=== PATIENT | male | born 1995 | race African-American/Black ===

== ENCOUNTER 2019-07-28 18:46 | Emergency (ER) | payer SELFPAY ==
[2019-07-28] MEDS ORDERED: CEPHALEXIN500 MG PO (20:22)
[2019-07-28 20:52] VITALS: BP 117/63
[2019-07-28] MEDS ORDERED: no home med (20:53)
== END 2019-07-28 20:52 | disposition home or self-care (01) | DRG 728 ==
LOC: ED 18:46
DX: N49.2 Inflammatory disorders of scrotum (principal)

== ENCOUNTER 2020-01-11 18:57 | Emergency (ER) | payer SELFPAY ==
[~2020-01-11] VITALS: Ht 176.5 cm; Wt 77.0 kg
[~2020-01-11 18:57] MED LIST: CEPHALEXIN500 MG PO; no home med
[2020-01-11 19:47] LABS: HEMATOCRIT 38.4 % (39.0-50.0); HEMOGLOBIN 12.5 g/dl (14.0-18.0); IMMATURE GRANULOCYTES 0.2 % (0.0-5.0); MEAN CELL VOLUME 89.1 fL CALC (80.0-100.0); MEAN CORPUSCULAR HGB CONC 32.6 g/dL CAL (32.0-36.0); NEUT# 3.14 thou/uL (1.82-7.42); RED BLOOD COUNT 4.31 mill/uL (4.70-6.10); RED CELL DISTRI WIDTH 11.9 % (11.5-15.5)
[2020-01-11 19:50] LABS: URINE BILIRUBIN - DIPSTICK NEGATIVE (NEGATIVE); URINE BLOOD DIPSTICK NEGATIVE (NEGATIVE); URINE COLOR YELLOW; URINE GLUCOSE - DIPSTICK NEGATIVE (NEGATIVE); URINE KETONE NEGATIVE (NEGATIVE); URINE LEUK ESTERASE NEGATIVE (NEGATIVE); URINE NITRITE - DIPSTICK NEGATIVE (Negative); URINE PROTEIN - DIPSTICK NEGATIVE (NEG-TRACE); URINE SPECIFIC GRAVITY 1.025; URINE UROBILINOGEN - DIPSTICK 0.2 E.U./dL (0.2)
[2020-01-11 20:03] LABS: ALBUMIN 4.4 g/dL (3.2-5.0); ALKALINE PHOSPHATASE 64 u/l (38-126); AMYLASE 77 u/l (30-110); ANION GAP 8 (6-22 (CALC)); BILIRUBIN, TOTAL 0.4 mg/dL (0.0-1.4); BUN 20 mg/dL (9-20); BUN/CREATININE RATIO 16 (12-20 (CALC)); CARBON DIOXIDE 30 mmol/l (22-30); CHLORIDE 102 mmol/l (95-108); CREATININE 1.3 mg/dL (0.7-1.3); GFR > 60 ML/MIN (>=60 (CALC)); GFR FOR AFR.AMER. > 60 ML/MIN (>=60 (CALC)); LIPASE 104 u/l (23-300); POTASSIUM 4.4 mmol/l (3.5-5.1); SGOT/AST 112 u/l (17-59); SODIUM 136 mmol/l (137-146); TOTAL PROTEIN 6.7 g/dL (6.3-8.2)
[2020-01-11 21:29] VITALS: BP 124/70
== END 2020-01-11 21:29 | disposition home or self-care (01) | DRG 392 ==
LOC: ED 18:57
DX: R10.31 Right lower quadrant pain (principal)
CPT/HCPCS: Q9967

== ENCOUNTER 2020-03-10 08:29 | Emergency (ER) | payer BC ==
[~2020-03-10] VITALS: Ht 177.8 cm; Wt 80.0 kg
[2020-03-10] MEDS ORDERED: NAPROXEN500 MG PO (09:13)
[2020-03-10 09:28] VITALS: BP 118/56
== END 2020-03-10 09:28 | disposition home or self-care (01) | DRG 605 ==
LOC: ED 08:29
DX: S20.212A Contusion of left front wall of thorax, initial encounter (principal); X50.0XXA Overexertion from strenuous movement or load, initial encounter; Y93.75 Activity, martial arts; Y92.89 Other specified places as the place of occurrence of the external cause

== ENCOUNTER 2020-07-08 08:41 | Emergency (ER) | payer BC ==
[~2020-07-08] VITALS: Ht 177.8 cm; Wt 95.0 kg
[~2020-07-08 08:41] MED LIST changes: +NAPROXEN500 MG PO
[2020-07-08] MEDS ORDERED: NAPROXEN500 MG PO (09:34)
[2020-07-08 09:43] VITALS: BP 128/48
== END 2020-07-08 10:06 | disposition home or self-care (01) | DRG 563 ==
LOC: ED 08:41
DX: S93.401A Sprain of unspecified ligament of right ankle, initial encounter (principal); W22.8XXA Striking against or struck by other objects, initial encounter

== ENCOUNTER 2021-12-09 00:47 | Emergency (ER) | payer OTHER, BC ==
[~2021-12-09] VITALS: Ht 177.8 cm; Wt 76.8 kg
[2021-12-09] MEDS ORDERED: VOLTAREN - GENE75 MG PO (01:48)
[2021-12-09 02:00] VITALS: BP 123/78
== END 2021-12-09 02:14 | disposition home or self-care (01) | DRG 563 ==
LOC: ED 00:47
DX: S46.911A Strain of unspecified muscle, fascia and tendon at shoulder and upper arm level, right arm, initial encounter (principal); X50.0XXA Overexertion from strenuous movement or load, initial encounter; Y93.71 Activity, boxing

== ENCOUNTER 2022-05-18 18:11 | Emergency (ER) | payer OTHER ==
[~2022-05-18] VITALS: Ht 177.8 cm; Wt 75.0 kg
[~2022-05-18 18:11] MED LIST changes: +VOLTAREN - GENE75 MG PO
[2022-05-18 18:16] VITALS: BP 122/77
[2022-05-18 18:30] VITALS: BP 119/69
[2022-05-18] MEDS ORDERED: PAXLOVID PO (18:39)
[2022-05-18 18:45] VITALS: BP 110/68
[2022-05-18 19:00] VITALS: BP 115/66
[2022-05-18 19:15] VITALS: BP 115/66
== END 2022-05-18 19:15 | disposition home or self-care (01) | DRG 179 ==
LOC: ED 18:11
DX: U07.1 COVID-19 (principal)